=== PATIENT | female | born 1980 | race Caucasian/White ===

== ENCOUNTER → 2023-12-30 12:58 | Outpatient (REF) | payer BC, SELFPAY | LOC: WDC 12:58 | PROVIDERS: ATTENDING PHYSICIAN Nurse Practitioner Family | DX: Z12.31 Encounter for screening mammogram for malignant neoplasm of breast (principal) | CPT/HCPCS: 77063; 77067 ==

== ENCOUNTER → 2024-07-18 10:01 | Outpatient (REF) | payer BC, SELFPAY | LOC: WDC 10:01 | PROVIDERS: ATTENDING PHYSICIAN Nurse Practitioner Family | DX: R92.343 Mammographic extreme density, bilateral breasts (principal) | CPT/HCPCS: 76641 ==

== ENCOUNTER → 2025-01-08 09:39 | Outpatient (REF) | payer BC, SELFPAY | LOC: WDC 09:39 | PROVIDERS: ATTENDING PHYSICIAN Nurse Practitioner Family | DX: R92.8 Other abnormal and inconclusive findings on diagnostic imaging of breast (principal) | CPT/HCPCS: 76642; 77063; 77067 ==